=== PATIENT | female | born 1985 | race Asian ===

== ENCOUNTER 2019-12-07 22:06 | Emergency (ER) | payer OTHER ==
[~2019-12-07] VITALS: Ht 157.5 cm; Wt 49.9 kg
[2019-12-07 22:14] VITALS: BP 110/72
[2019-12-07] MEDS ORDERED: LIDOCAINE 2% 20 ML MDV TP ONE (22:30)
[2019-12-07] MEDS ORDERED: LIDOCAINE 2% 20 ML MDV ONE (22:33)
--- NOTE | 2019-12-07 22:39 | NUR ---
PATIENT CAME TO ER BED 1 C/O RIGHT HAND 5TH DIGIT LACERATION. PATIENT STATES THAT A SARAN WRAP HAD FALLEN WHEN THE RAZORS HAD APPARENTLY CUT HER PINKY. AAOX4. NO SOB. BREATHING EVENLY AND UNLABORED ON ROOM AIR. CONNECTED TO MONITOR.
--- NOTE | 2019-12-07 22:51 | NUR ---
XRAY AT BEDSIDE.
--- NOTE | 2019-12-07 23:12 | NUR ---
AT BEDSIDE FOR SUTURE.
--- NOTE | 2019-12-07 23:17 | NUR ---
Patient discharged to home in stable condition. Written and verbal after care instructions given. Patient verbalizes understanding of instruction.
== END 2019-12-07 23:37 | disposition home or self-care (01) ==
LOC: ER 22:09
DX: S61.216A Laceration without foreign body of right little finger without damage to nail, initial encounter (principal); W26.8XXA Contact with other sharp object(s), not elsewhere classified, initial encounter; Y93.89 Activity, other specified; Y92.89 Other specified places as the place of occurrence of the external cause; Y99.8 Other external cause status
CPT/HCPCS: 12001; 99282; A6403; J3490